=== PATIENT | female | born 1990 | race Caucasian/White ===

== ENCOUNTER 2021-06-26 01:54 | Inpatient (IN) | payer MEDICAID, OTHER, SELFPAY ==
[~2021-06-26] VITALS: Ht 157.5 cm; Wt 68.2 kg
[2021-06-26 02:27] LABS: HEMATOCRIT 41.6 % (36.0-47.0); MEAN CORPUSCULAR HEMOGLOBIN 31.8 pg (27.0-33.0); MEAN CORPUSCULAR HGB CONC 36.1 g/dl (32.0-36.5); MEAN CORPUSCULAR VOLUME 88.3 fl (80.0-96.0); PLATELET COUNT, AUTOMATED 280 10^3/uL (150-450); RED BLOOD COUNT 4.71 10^6/uL (4.00-5.40); WHITE BLOOD COUNT 13.7 10^3/uL (4.0-10.0)
[2021-06-26] MEDS ORDERED: SERO1TAB PO (02:50)
[2021-06-26 02:57] LABS: HCG, SERUM QUALITATIVE NEGATIVE (NEGATIVE)
[2021-06-26 03:12] LABS: ACETAMINOPHEN LEVEL < 2.0 UG/ML (10.0-30.0); ALBUMIN 4.2 GM/DL (3.2-5.2); ALT/SGPT 14 U/L (12-78); AMPHETAMINES LEVEL URINE NEGATIVE (NEGATIVE); BARBITURATES URINE NEGATIVE (NEGATIVE); BENZODIAZEPINES URINE NEGATIVE (NEGATIVE); BILIRUBIN,DIRECT 0.2 MG/DL (0.0-0.2); BILIRUBIN,TOTAL 0.5 MG/DL (0.2-1.0); BLOOD UREA NITROGEN 10 MG/DL (7-18); CALCIUM LEVEL 9.4 MG/DL (8.5-10.1); CANNABINOIDS URINE POSITIVE (NEGATIVE); CARBON DIOXIDE LEVEL 21 MEQ/L (21-32); CHLORIDE LEVEL 106 MEQ/L (98-107); COCAINE METABOLITE URINE NEGATIVE (NEGATIVE); ETHYL ALCOHOL (ETHANOL) < 0.003 % (0.000-0.010); GLOMERULAR FILTRATION RATE > 60.0 (>60); GLUCOSE, FASTING 147 MG/DL (70-100); METHADONE URINE NEGATIVE (NEGATIVE); OPIATES URINE NEGATIVE (NEGATIVE); PHENCYCLIDINE URINE NEGATIVE (NEGATIVE); POTASSIUM SERUM 3.5 MEQ/L (3.5-5.1); SALICYLATE LEVEL 5.2 MG/DL (5.0-30.0); SODIUM LEVEL 140 MEQ/L (136-145)
[2021-06-26 03:16] LABS: RSV AMPLIFICATION NEGATIVE (NEGATIVE)
[2021-06-26] MEDS ORDERED: OLANZapine 5 MG TAB PO ONE (03:35)
[2021-06-26] MEDS ORDERED: HOME MED LIST COMPLETE! XX SCH (04:25)
[2021-06-26] MEDS ORDERED: QUET50TA48 PO (11:13)
[2021-06-26] MEDS ORDERED: SERT25TA21 PO (11:13)
[2021-06-26] MEDS ORDERED: QUET200T54 PO (11:13)
[2021-06-26] MEDS ORDERED: QUET100T2 PO (11:13)
[2021-06-26] MEDS ORDERED: FLON1SPR NARES (11:13)
[2021-06-26] MEDS ORDERED: QUET50TA4 PO (11:13)
[2021-06-26] MEDS ORDERED: NICOTINE 21MG/24HR 1 EA TRANSDERMAL TD ONE (11:15)
[2021-06-26] MEDS ORDERED: diphenhydrAMINE 50MG/ML VIAL (J1200) IM ONE (12:40)
[2021-06-26] MEDS ORDERED: HALOPERIDOL 5MG/ML VIAL (J1630 PER 1) IM ONE (12:40)
[2021-06-26] MEDS ORDERED: LORazepam 2 MG/ML VIAL IM ONE (12:40)
[2021-06-26] MEDS ORDERED: OLANZapine ORAL DISINTEGRATING TAB 5MG PO ONE (12:50)
[2021-06-26] MEDS ORDERED: IBUPROFEN 400MG TAB PO ONE (22:30)
[2021-06-27] MEDS ORDERED: LORazepam 2 MG/ML VIAL IM ONE ×2 (00:10→18:00)
[2021-06-27] MEDS ORDERED: diphenhydrAMINE 50MG/ML VIAL (J1200) IM ONE ×2 (00:10→18:00)
[2021-06-27] MEDS ORDERED: HALOPERIDOL 5MG/ML VIAL (J1630 PER 1) IM ONE ×2 (00:10→18:00)
[2021-06-27] MEDS ORDERED: LORazepam 2 MG/ML VIAL As Ordered ONE (18:05)
[2021-06-28] MEDS ORDERED: NICOTINE 21MG/24HR 1 EA TRANSDERMAL TD ONE (10:00)
[2021-06-28] MEDS ORDERED: OLANZapine ORAL DISINTEGRATING TAB 5MG PO PRN (16:50)
[2021-06-28] MEDS ORDERED: HOME MED LIST COMPLETE! XX SCH (18:10)
[2021-06-28] MEDS ORDERED: MAALOX 30 ML SUSP *UDC PO PRN (20:15)
[2021-06-28] MEDS ORDERED: ACETAMINOPHEN TAB 650MG DOSE (2X325MG) PO PRN (20:15)
[2021-06-28] MEDS ORDERED: traZODone 50 MG TAB PO PRN (20:15)
[2021-06-28] MEDS ORDERED: NICOTINE 21MG/24HR 1 EA TRANSDERMAL TD PRN (20:15)
[2021-06-28] MEDS ORDERED: MOM 30ML SUSPENSION UDC PO PRN (20:15)
[2021-06-28 22:17] VITALS: BP 129/74
[2021-06-29 06:22] VITALS: BP 110/59
[2021-06-29] MEDS ORDERED: QUEtiapine FUMARATE 50MG TAB PO PRN (10:20)
== END 2021-06-29 16:45 | disposition home or self-care (01) | DRG 756 ==
LOC: EDBD 01:54 → M ED 01:54 → M ED INP 06-28 16:47 → M PSY 06-28 21:13
PROVIDERS: ADMIT Psychiatry & Neurology Psychiatry; ATTEND Psychiatry & Neurology Psychiatry
DX: F41.0 Panic disorder [episodic paroxysmal anxiety] (principal); F17.200 Nicotine dependence, unspecified, uncomplicated; F12.10 Cannabis abuse, uncomplicated; F43.10 Post-traumatic stress disorder, unspecified; Z91.410 Personal history of adult physical and sexual abuse